=== PATIENT | male | born 1975 | race Caucasian/White ===

== ENCOUNTER 2022-01-06 14:43 | Outpatient (CLI) | payer OTHER ==
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
[2022-01-06 15:31] VITALS: BP 130/88
== END 2022-01-06 14:44 | disposition home or self-care (01) ==
LOC: SC 14:43
PROVIDERS: ATTEND Nurse Practitioner Family
DX: R06.83 Snoring (principal); G47.8 Other sleep disorders; R06.81 Apnea, not elsewhere classified; G47.10 Hypersomnia, unspecified; R53.83 Other fatigue; E66.3 Overweight; Z68.27 Body mass index [BMI] 27.0-27.9, adult
CPT/HCPCS: 99203; 99212

== ENCOUNTER 2022-01-25 19:30 | Outpatient (CLI) | payer OTHER | END 2022-01-25 19:31 | disposition home or self-care (01) | LOC: SC 19:30 | PROVIDERS: ATTEND Nurse Practitioner Family | DX: G47.33 Obstructive sleep apnea (adult) (pediatric) (principal) | CPT/HCPCS: 95810 ==

== ENCOUNTER 2022-02-24 15:23 | Outpatient (CLI) | payer OTHER ==
--- NOTE | 2022-02-24 15:58 | SLEEP CARE CONSULTATION ---
Information from patient questionnaire entered by Melonie Cerda. I have reviewed and concur with the information entered by Melonie Cerda. This document represents the service I personally performed and the decisions made by , Lisa Saravia ARNP. History of Present Illness Service Date and Time: 02/24/2022 152 Initial [place] Sleepiness Scale score: 16 (01/06/2022) Current [place] Sleepiness Scale score: 6 (02/24/22) Additional HPI information: LAN HAYNES returns for follow up and results of the recently performed polysomnography. I explained the pathophysiology behind obstructive sleep apnea. We then spent quite a bit of time discussing different treatment options. For mild obstructive sleep apnea, surgery and oral appliance are alternatives to nasal CPAP therapy but in moderate or severe cases, nasal CPAP is the most effective and reliable treatment. Because apnea is primarily in supine position, then positional management therapy could be effective. Methods discussed such as positioning with pillows to prevent supine sleep. I reviewed the impact of weight changes on sleep apnea. After some discussion, the patient opted to go with the nasal CPAP therapy. Nasal autoCPAP set at 4-15 cmH20 will be ordered with rationale explained. A manual titration study will be ordered if unable to find optimal pressure with office adjustments. I explained how CPAP machine works and what to expect when using the machine. Using CPAP every night in order to get used to it was emphasized. Patient advised to put CPAP mask on before getting into bed so as not to fall asleep without CPAP. To assist acclimation to CPAP use, it could also be used for a short time during day while reading or watching TV. The patient was instructed to call the CPAP supplier to discuss any mechanical problem that may occur. If the mask given is uncomfortable or is difficult to keep on through the night even with adjustment, contact the CPAP supplier as many will replace with another mask style if notified before 30 days. If snoring or perceives is not getting enough air or too much air from the machine, notify this office. Patient was cautioned about risks of drowsy driving until sleepiness symptoms resolve. Sleep Study - Results Type of Sleep Study: Polysomnography (COMPLETED 01/25/22) Prior sleep studies: No Polysomnography/Home Sleep Study results: IMPRESSION: The quality of the study is good. The patient had slightly reduced sleep efficiency due to frequent awakenings during the night. The sleep architecture was abnormal for sleep fragmentation and reduced amount of time spent in REM and slow wave sleep (N3). Respiratory monitoring showed mild obstructive sleep apnea-hypopnea (AHI = 13.5) associated with frequent arousals, oxyhemoglobin desaturation and mild hypoxia (alfredo oxygen saturation of 87%). The respiratory events occurred almost exclusively during supine sleep (supine AHI =25.1; non-supine = 2.39). Snore was moderate to loud in intensity. There was no significant periodic leg movement of sleep. Cardiac rhythm was normal sinus rhythm without significant arrhythmia. No abnormal behavior (parasomnia) observed during the night. Allergies and Home Medications Drug allergies reviewed: Yes (piroxicam) Home medication list reviewed: Yes (Meloxicam 15 mg, daily for lower back pain) Review of Systems Review of systems same as previous: Yes (no changes) Physical Exam Vital signs obtained and entered by: MELONIE Miller MA Blood Pressure: 130/82 (LEFT ARM) Cuff size: regular Heart Rate: 76 O2 Saturation: 98 Height: 5 ft 10 in Weight: 196 lb Body Mass Index: 28.1 BMI Classification: Overweight Impression and Plan 1. Obstructive Sleep Apnea-Hypopnea Syndrome, mild, with lowest oxygen saturation of 87%. Obviously this is the cause of the patients symptoms of unrefreshed sleep, and excessive daytime sleepiness. Positive pressure therapy could benefit hypertension. As mentioned above, the patient will be started on nasal autoCPAP therapy with pressure set at 4-15 cmH2O. Compliance guidelines also reviewed. A copy of compliance guidelines will be given for reference at check out. Because the apnea is more severe supine, I instructed to avoid sleeping supine using pillow positioning until able to start CPAP use. * Nasal auto CPAP therapy, pressure at 4-15 cm H2O. * Avoid supine sleep until using CPAP. * The patient is again cautioned about driving until sleepiness completely resolves. * Return one month after CPAP obtained. I will assess response to therapy and compliance at that time. Counseling Topics: Sleeping position, Weight loss health impact Visit Type: In Office Time Spent with Patient (minutes): 22 Provider Statement: I spent 100% of the Face to Face Visit with the patient with greater than 50% spent counseling the patient and coordination of care.
[2022-02-24 16:04] VITALS: BP 130/82
== END 2022-02-24 15:24 | disposition home or self-care (01) ==
LOC: SC 15:23
PROVIDERS: ATTEND Nurse Practitioner Family
DX: G47.33 Obstructive sleep apnea (adult) (pediatric) (principal); E66.3 Overweight; Z68.28 Body mass index [BMI] 28.0-28.9, adult
CPT/HCPCS: 99212; 99213

== ENCOUNTER 2022-04-30 11:20 | Outpatient (CLI) | payer OTHER ==
[2022-04-30 12:04] VITALS: BP 124/76
--- NOTE | 2022-04-30 12:04 | SLEEP CARE CONSULTATION ---
Information from patient questionnaire entered by Melonie Cerda. I have reviewed and concur with the information entered by Melonie Cerda. This document represents the service I personally performed and the decisions made by me, Lisa Saravia ARNP. History of Present Illness Service Date and Time: 04/30/2022 1120 Previous diagnosis: Mild, Obstructive Sleep Apnea-Hypopnea Syndrome AHI: 13.5 (in 2021) Reason for follow up: first compliance Equipment type: CPAP (RESMED Airsense 11 s/u 03/2022) Equipment obtained from: Other ([facility]; getting supplies) Mask style: Nasal pillows Backup mask available: No (will keep old mask when replaced) Last cushion change: 1 month Prior sleep studies: No Type of Sleep Study: Polysomnography (COMPLETED 01/25/22) HPI additional information: LAN HAYNES was diagnosed to have mild, AHI 13.5, obstructive sleep apnea-hypopnea syndrome and returned today for CPAP therapy first compliance follow-up. Sleep Study - Results Type of Sleep Study: Polysomnography (COMPLETED 01/25/22) Prior sleep studies: No CPAP Compliance Data - Data Reviewed with Patient Average duration of nightly device use: 5 HRS 39 MIN Compliance rate %: 100 (03/30/22-04/28/22; 30/30 days used) Current pressure setting (cmH2O): 4-15 (median 7.2, avg 9.5, max 10.7) Average residual AHI: 2.3 Central apnea: 0.3 Obstructive apnea: 1.7 Average large leak: 0.0 Subjective Missed days of use due to: reports: other (taken mask off when asleep) Patient concerns: reports: mask discomfort (minor), condensation in mask/hose, dry mouth, nose, throat. denies: aerophagia, air blowing in eyes, mask leak noise, nasal congestion, epistaxis Observed to snore while using device: Yes (less often) Current pressure setting perceived as: comfortable On therapy, patient: reports: sleeping better (some when he gets more time in mask). denies: drowsiness while driving Initial [place] Sleepiness Scale score: 16 (01/06/2022) Current [place] Sleepiness Scale score: 9 (04/30/22) Allergies and Home Medications Known drug allergies: Yes (piroxicam) Drug allergies reviewed: Yes Home medication list reviewed: Yes (no changes) Review of Systems Review of systems same as previous: Yes (no changes) Physical Exam Vital signs obtained and entered by: MELONIE Miller MA Blood Pressure: 124/76 (LEFT ARM) Cuff size: regular Heart Rate: 73 O2 Saturation: 97 Height: 5 ft 10 in Weight: 192 lb 9.6 oz Body Mass Index: 27.6 BMI Classification: Overweight Impression and Plan 1. Obstructive Sleep Apnea-Hypopnea Syndrome, mild, with good treatment compliance and good apnea control. He has noted small improvements of his sleep quality with he uses CPAP. He has been getting a cough from an irritation in his throat with some dry mouth. He tried to increase his humidity but then he got a lot of condensation in his mask. I advised him to increase his humidity again and also increase the heated hose temperature to try to control condensation. He voiced understanding. He has felt the pressure to be comfortable but states that he has noted an increase in snoring over last couple weeks (very minor). The patients pressure will be changed to autoCPAP 9-11 cmH20 to reflect pressures being used. Patient advised to contact me if pressure change is uncomfortable so that it can be adjusted. Goals for apnea control discussed. Patient's apnea severity and rationale for treatment to reduce apnea, improve sleep quality and reduce cardiovascular and cerebrovascular events was reviewed. I also reviewed the benefit of consistent device use of CPAP for hypertension. 2. Overweight, unspecified. Currently patients BMI is 27.6. Obesity increases the risk of apnea, CPAP pressure requirements and overall health risks especially cardiovascular and diabetes. Thus patient is advised to lose weight. * Change auto CPAP pressure to 9-11 cmH2O * Notify me if snoring with mask or feeling that the pressure is too much or too little * Attempt to lose weight * Call this office if any problems using CPAP * Return for follow up in 1-2 months, or sooner if concerns arise Counseling Topics: Spare mask, Weight loss health impact Visit Type: In Office Time Spent with Patient (minutes): 21 Provider Statement: I spent 100% of the Face to Face Visit with the patient with greater than 50% spent counseling the patient and coordination of care.
== END 2022-04-30 11:21 | disposition home or self-care (01) ==
LOC: SC 11:20
PROVIDERS: ATTEND Nurse Practitioner Family
DX: G47.33 Obstructive sleep apnea (adult) (pediatric) (principal); E66.3 Overweight; Z68.27 Body mass index [BMI] 27.0-27.9, adult
CPT/HCPCS: 99212; 99213

== ENCOUNTER 2022-06-22 16:14 | Outpatient (CLI) | payer OTHER ==
[2022-06-22 16:57] VITALS: BP 128/80
--- NOTE | 2022-06-22 16:57 | SLEEP CARE CONSULTATION ---
Information from patient questionnaire entered by Melonie Cerda. I have reviewed and concur with the information entered by Melonie Cerda. This document represents the service I personally performed and the decisions made by me, Lisa Saravia ARNP. History of Present Illness Service Date and Time: 06/22/2022 1614 Previous diagnosis: Mild, Obstructive Sleep Apnea-Hypopnea Syndrome AHI: 13.5 (in 2021) Reason for follow up: other (2 MONTH F/U) Equipment type: CPAP (Resmed Airsense 11, s/u 03/2022) Equipment obtained from: Other ([facility]; getting supplies) Mask style: Nasal pillows Backup mask available: Yes (will have when he gets new supplies) Last cushion change: last week Prior sleep studies: No Type of Sleep Study: Polysomnography (COMPLETED 01/25/22) HPI additional information: LAN HAYNES was diagnosed to have mild, AHI 13.5, obstructive sleep apnea-hypopnea syndrome and returned today for CPAP therapy two month with pressure change follow-up. Sleep Study - Results Type of Sleep Study: Polysomnography (COMPLETED 01/25/22) Prior sleep studies: No CPAP Compliance Data - Data Reviewed with Patient Average duration of nightly device use: 5 HRS 9 MINS Compliance rate %: 98 (04/22/22-06/20/22; 60/60 days used) Current pressure setting (cmH2O): 9-11 Average residual AHI: 2.0 Central apnea: 0.8 Obstructive apnea: 1.0 Hypopnea: 0.1 Average large leak: 1.6 lpm Subjective Patient concerns: reports: condensation in mask/hose (improved a little bit), dry mouth, nose, throat (waking up with mouth open and dry). denies: aerophagia, mask discomfort, air blowing in eyes, mask leak noise, nasal congestion, epistaxis Observed to snore while using device: Yes (only when mouth opens when sleeping) Current pressure setting perceived as: too high On therapy, patient: reports: sleeping better, more rested overall, other (has back pain that is interrupting sleep). denies: drowsiness while driving Initial [place] Sleepiness Scale score: 16 (01/06/2022) Current [place] Sleepiness Scale score: 14 (06/22/22) Allergies and Home Medications Known drug allergies: Yes (piroxicam) Drug allergies reviewed: Yes Home medication list reviewed: Yes (lisinopril 10 mg daily) Allergy and home medication list: Allergies piroxicam [From Feldene] Allergy (Severe, Verified 06/21/22 09:39) Hives Review of Systems Review of systems same as previous: Yes (high blood pressure treatment) Physical Exam Vital signs obtained and entered by: MELONIE Miller MA Blood Pressure: 128/80 (left arm) Cuff size: regular Heart Rate: 74 O2 Saturation: 98 Height: 5 ft 10 in Weight: 185 lb 12.8 oz Body Mass Index: 26.6 BMI Classification: Overweight Impression and Plan 1. Obstructive Sleep Apnea-Hypopnea Syndrome, mild, with good treatment compliance and good apnea control. On CPAP therapy, the patient has better sleep quality and is more rested overall. Patient feels that since the pressure has been changed he is getting more oral dryness and is finding his mouth open more at night. He states he is also been having more back pain and has been sleeping on his back. The oral venting will cause increased dryness. He does not feel like he can use a chinstrap, so I encouraged him to try mouth strips if needed to keep mouth closed and prevent oral venting. Patient also said he is going to try to sleep more on his side to improve reduce mouth coming open, reduce dryness and hopefully reduce pain in his back. He feels his daytime fatigue may be due more to the pain in his back because he is unable to sleep more deeply because it is waking him up several times at night. Patient's apnea severity and rationale for treatment to reduce apnea, improve sleep quality and reduce cardiovascular and cerebrovascular events was reviewed. I also reviewed the benefit of consistent device use of CPAP for hypertension. 2. Overweight, unspecified. Currently patients BMI is 26.6. He is doing intermittent fasting to help him lose weight. Obesity increases the risk of apnea, CPAP pressure requirements and overall health risks especially cardiovascular and diabetes. Thus patient is advised to continue to try to lose weight. * Continue auto CPAP pressure at 9-11 cmH2O * Notify me if snoring with mask or feeling that the pressure is too much or too little * Continue to try to lose weight * Call this office if any problems using CPAP * Return for follow up in 3 months, or sooner if concerns arise Counseling Topics: Spare mask, Weight loss health impact Visit Type: In Office Time Spent with Patient (minutes): 20 Provider Statement: I spent 100% of the Face to Face Visit with the patient with greater than 50% spent counseling the patient and coordination of care.
== END 2022-06-22 16:15 | disposition home or self-care (01) ==
LOC: SC 16:14
PROVIDERS: ATTEND Nurse Practitioner Family
DX: G47.33 Obstructive sleep apnea (adult) (pediatric) (principal); E66.3 Overweight; Z68.26 Body mass index [BMI] 26.0-26.9, adult
CPT/HCPCS: 99212; 99213

== ENCOUNTER 2022-06-28 10:12 | Outpatient (CLI) | payer OTHER ==
--- NOTE | 2022-06-28 17:01 | MRI Report ---
PROCEDURE: LUMBAR SPINE WO INDICATIONS: LOW BACK PAIN TECHNIQUE: Noncontrast sagittal T1 spin echo and T2 fast echo, sagittal STIR, axial T1 and T2 fast spin echo thr ough the lumbar spine. In cases with scoliosis, additional coronal T2 fast spin echo may be performe d. COMPARISON: None. FINDINGS: Image quality: Excellent. Alignment and Curvature: No plain films are available for comparison. Thus, for numbering purposes, 5 lumbar type vertebral bodies will be presumed for the current report. This should be confirmed with plain film correlation prior to any lumbar spinal intervention. There is loss of normal lumbar lordo sis. Bone Marrow: Marrow is of normal overall signal. No acute vertebral body compression fractures. Spinal Cord: Conus medullaris terminates at the L1-L2 disc space level. Visualized cord demonstrate s normal signal and size. Paraspinous Soft Tissues: No paravertebral masses. T12-L1: Normal in appearance. L1-L2: Normal in appearance. L2-L3: Mild disc height loss and desiccation. Mild facet and ligament flavum hypertrophy. Mild epi dural lipomatosis. Mild canal stenosis. Mild bilateral foraminal stenosis. L3-L4: Mild disc desiccation and diffuse disc bulge. Mild facet and ligament flavum hypertrophy. Mi ld upper lipomatosis. Mild canal stenosis. Mild bilateral foraminal stenosis. L4-L5: Mild facet and ligament flavum hypertrophy. Mild epidural lipomatosis. Mild canal stenosis. Mild bilateral foraminal stenosis. L5-S1: Mild bilateral facet hypertrophy. No significant canal, nor foraminal stenosis. IMPRESSION: 1. Multilevel degenerative disc and facet disease, in addition to epidural lipomatosis and ligamentum flavum hypertrophy. 2. Mild multilevel canal and foraminal stenoses. No neural impingement. Reviewed by: Delisa Acosta MD on 06/28/2022 5:00 PM PDT Approved by: Delisa Acosta MD on 06/28/2022 5:00 PM PDT Station ID: [id number]
== END 2022-06-28 10:13 | disposition home or self-care (01) ==
LOC: DI 10:12
PROVIDERS: ATTEND Family Medicine
DX: M51.36 Other intervertebral disc degeneration, lumbar region (principal); M48.061 Spinal stenosis, lumbar region without neurogenic claudication; M47.816 Spondylosis without myelopathy or radiculopathy, lumbar region; M47.817 Spondylosis without myelopathy or radiculopathy, lumbosacral region

== ENCOUNTER 2022-10-05 16:18 | Outpatient (CLI) | payer OTHER ==
--- NOTE | 2022-10-05 16:57 | Sleep Patient Instructions ---
Sleep Center Visit Summary - Patient Visit Information Reason for Visit: Three month followup for PAP therapy - Patient Instructions Additional Instructions: You were here for follow up of CPAP therapy. You will be continued on CPAP therapy with pressure at 9-11 cmH2O. You should follow up with sleep care in 12 months. You may contact us sooner for any questions or concerns. - Clinic Information Contact: [facility] [address] [place] [address] [email or web address] T: [phone]
--- NOTE | 2022-10-05 17:03 | SLEEP CARE CONSULTATION ---
Information from patient questionnaire entered by Melonie Cerda. I have reviewed and concur with the information entered by Melonie Cerda. This document represents the service I personally performed and the decisions made by , Lisa Saravia ARNP. History of Present Illness Service Date and Time: 10/05/2022 1618 Previous diagnosis: Mild, Obstructive Sleep Apnea-Hypopnea Syndrome AHI: 13.5 (in 2021) Reason for follow up: three month (F/U) Equipment type: CPAP (Resmed Airsense 11, s/u 03/2022) Equipment obtained from: Other ([facility]; getting supplies) Mask style: Nasal pillows ([facility]) Backup mask available: Yes (old mask) Last cushion change: 1 month Prior sleep studies: No Type of Sleep Study: Polysomnography (COMPLETED 01/25/22) HPI additional information: LAN HAYNES was diagnosed to have mild, AHI 13.5, obstructive sleep apnea-hypopnea syndrome and returned today for CPAP therapy three month follow- up. Sleep Study - Results Type of Sleep Study: Polysomnography (COMPLETED 01/25/22) Prior sleep studies: No CPAP Compliance Data - Data Reviewed with Patient Average duration of nightly device use: 4 HRS 56 MINS Compliance rate %: 80 (07/02/22-09/29/22; 77/90 days used) Current pressure setting (cmH2O): 9-11 Average residual AHI: 1.7 Central apnea: 0.7 Obstructive apnea: 0.7 Hypopnea: 0.2 Subjective Missed days of use due to: reports: travel (luggage got lost when flying), other (camping) Patient concerns: reports: dry mouth, nose, throat (when laying on back). denies: aerophagia, mask discomfort, air blowing in eyes, mask leak noise, condensation in mask/hose, nasal congestion, epistaxis Observed to snore while using device: No Current pressure setting perceived as: comfortable On therapy, patient: reports: sleeping better, awakening more refreshed, more rested overall. denies: drowsiness while driving Initial [place] Sleepiness Scale score: 16 (01/06/2022) Current [place] Sleepiness Scale score: 12 Allergies and Home Medications Known drug allergies: Yes (piroxicam) Drug allergies reviewed: Yes Home medication list reviewed: Yes (no changes) Allergy and home medication list: Allergies piroxicam [From Feldene] Allergy (Severe, Verified 10/04/22 09:39) Hives Review of Systems Review of systems same as previous: Yes (no changes) Physical Exam Vital signs obtained and entered by: Lisa Small NP Blood Pressure: 112/84 Cuff size: wrist (right) Heart Rate: 86 O2 Saturation: 98 Height: 5 ft 10 in Weight: 186 lb Body Mass Index: 26.6 BMI Classification: Overweight Impression and Plan 1. Obstructive Sleep Apnea-Hypopnea Syndrome, mild, with good treatment compliance and good apnea control. On CPAP therapy, the patient has better sleep quality and is more rested overall. Patient has significant improvement of their sleep apnea and is satisfied with current CPAP therapy. Patient states he has been getting a little dry in his throat and in the morning has some congestion causing a little cough. He states his sinuses seem to be clear. He is not sure if he has seasonal allergies that might be causing this at this time. Patient denies problems with nasal congestion, epistaxis, skin irritation or aerophagia. Patient's apnea severity and rationale for treatment to reduce apnea, improve sleep quality and reduce cardiovascular and cerebrovascular events was reviewed. I also reviewed the benefit of consistent device use of CPAP for hypertension. He is doing well and states he is comfortable with CPAP therapy. I will follow- up with him next year. He knows he can come in if he has any issues or concerns that come up. 2. Overweight, unspecified. Currently patients BMI is 26.6. Obesity increases the risk of apnea, CPAP pressure requirements and overall health risks especially cardiovascular and diabetes. Thus patient is advised to lose weight. * Continue auto CPAP pressure at 9-11 cmH2O * Notify me if snoring with mask or feeling that the pressure is too much or too little * Attempt to lose weight * Call this office if any problems using CPAP * Return for follow up in 12 months, or sooner if concerns arise Counseling Topics: Spare mask, Weight loss health impact Visit Type: In Office Time Spent with Patient (minutes): 20 Provider Statement: I spent 100% of the Face to Face Visit with the patient with greater than 50% spent counseling the patient and coordination of care.
[2022-10-05 17:07] VITALS: BP 112/84
== END 2022-10-05 16:19 | disposition home or self-care (01) ==
LOC: SC 16:18
PROVIDERS: ATTEND Nurse Practitioner Family
DX: G47.33 Obstructive sleep apnea (adult) (pediatric) (principal); E66.3 Overweight; Z68.26 Body mass index [BMI] 26.0-26.9, adult
CPT/HCPCS: 99212; 99213

== ENCOUNTER 2023-10-19 15:09 | Outpatient (CLI) | payer OTHER ==
--- NOTE | 2023-10-19 15:36 | Sleep Patient Instructions ---
Sleep Center Visit Summary - Patient Visit Information Reason for Visit: Annual follow-up for PAP therapy - Patient Instructions Additional Instructions: You will continue with CPAP therapy with pressure set at 9-11 cmH2O. A supply prescription will be updated with your DME supplier. Please follow up with the sleep care office in 1 year. - Clinic Information Contact: [facility] [address] [place] [address] [email or web address] T: [phone]
--- NOTE | 2023-10-19 15:38 | SLEEP CARE CONSULTATION ---
Information from patient questionnaire entered by Melonie Cerda. I have reviewed and concur with the information entered by Melonie Cerda. This document represents the service I personally performed and the decisions made by , Lisa Saravia ARNP. History of Present Illness Service Date and Time: 10/19/2023 1509 Previous diagnosis: Mild, Obstructive Sleep Apnea-Hypopnea Syndrome AHI: 13.5 (in 2021) Reason for follow up: annual (LAST SEEN 10/2022) Equipment type: CPAP (Resmed Airsense 11, s/u 03/2022) Equipment obtained from: Other ([facility]; getting supplies) Mask style: Nasal pillows ([facility]) Backup mask available: Yes Last cushion change: couple weeks Prior sleep studies: No Type of Sleep Study: Polysomnography (COMPLETED 01/25/22) HPI additional information: LAN HAYNES was diagnosed to have mild, AHI 13.5, obstructive sleep apnea-hypopnea syndrome and returned today for CPAP therapy annual follow-up. Sleep Study - Results Type of Sleep Study: Polysomnography (COMPLETED 01/25/22) Prior sleep studies: No CPAP Compliance Data - Data Reviewed with Patient Average duration of nightly device use: 5 HRS 1 MINS Compliance rate %: 88 (10/17/22-10/16/23; 345/365 days used) Current pressure setting (cmH2O): 9-11 Average residual AHI: 1.7 Central apnea: 0.7 Obstructive apnea: 0.8 Hypopnea: 0.1 Average large leak: 3.6 L/min Subjective Missed days of use due to: reports: travel Patient concerns: reports: dry mouth, nose, throat (occasional, some nights worse than others). denies: aerophagia, mask discomfort, air blowing in eyes, mask leak noise, condensation in mask/hose, nasal congestion, epistaxis Observed to snore while using device: No Current pressure setting perceived as: comfortable On therapy, patient: reports: sleeping better, awakening more refreshed, being more awake and alert during the day, more rested overall. denies: drowsiness while driving Initial [place] Sleepiness Scale score: 16 (01/06/2022) Current [place] Sleepiness Scale score: 10 (10/19/23) Allergies and Home Medications Known drug allergies: Yes (as listed) Drug allergies reviewed: Yes Home medication list reviewed: Yes (Lisinopril) Allergy and home medication list: Allergies piroxicam [From Feldene] Allergy (Severe, Verified 10/19/23 15:11) Emely Review of Systems Review of systems same as previous: Yes (NO CHANGE) Physical Exam Vital signs obtained and entered by: MELONIE Miller MA Blood Pressure: 139/90 (LEFT ARM) Cuff size: regular Heart Rate: 65 O2 Saturation: 98 Height: 5 ft 10 in Weight: 191 lb 6.4 oz Body Mass Index: 27.4 BMI Classification: Overweight Impression and Plan 1. Obstructive Sleep Apnea-Hypopnea Syndrome, mild, with good treatment compliance and good apnea control. On CPAP therapy, the patient has better sleep quality and is more rested overall. Patient has significant improvement of their sleep apnea and is satisfied with current CPAP therapy. Patient denies problems with nasal congestion, epistaxis, skin irritation or aerophagia. Patient's apnea severity and rationale for treatment to reduce apnea, improve sleep quality and reduce cardiovascular and cerebrovascular events was reviewed. I also reviewed the benefit of consistent device use of CPAP for hypertension. 2. Overweight, unspecified. Currently patients BMI is 27.4. Obesity increases the risk of apnea, CPAP pressure requirements and overall health risks especially cardiovascular and diabetes. Thus patient is advised to lose weight. * Continue auto CPAP pressure at 9-11 cmH2O * Update supply prescription. * Notify me if snoring with mask or feeling that the pressure is too much or too little * Attempt to lose weight * Call this office if any problems using CPAP * Return for follow up in 12 months, or sooner if concerns arise Counseling Topics: Spare mask, Weight loss health impact Prescriptions: Device supplies Follow up with Sleep Care in: 1 year Visit Type: In Office Time Spent with Patient (minutes): 13 Provider Statement: I spent 100% of the Face to Face Visit with the patient with greater than 50% spent counseling the patient and coordination of care.
[2023-10-19 15:40] VITALS: BP 139/90; O2SAT 98
== END 2023-10-19 15:10 | disposition home or self-care (01) ==
LOC: SC 15:09
PROVIDERS: ATTEND Nurse Practitioner Family
DX: G47.33 Obstructive sleep apnea (adult) (pediatric) (principal); E66.3 Overweight; Z68.27 Body mass index [BMI] 27.0-27.9, adult
CPT/HCPCS: 99212